=== PATIENT | male | born 1965 | race Caucasian/White ===

== ENCOUNTER 2019-05-17 17:06 | Emergency (ER) | payer OTHER ==
[~2019-05-17] VITALS: Ht 172.7 cm; Wt 81.6 kg
--- OUTSIDE RECORDS SUMMARY | 2019-05-17 17:09 | XMS REPORT | Summary of Care ---
Author Author Day Tesfaye M.A. Unknown Address [facility] Phone Unavailable Care Team Providers Care House Fellow Name Role Phone MARYJOCARLI LOZADA Unavailable Unavailable Jude Block MD Unavailable Unavailable JUDE BLOCK M.D. Unavailable Unavailable Senait Marie MD Unavailable Unavailable KINA STEPHENS MD Unavailable Unavailable Unavailable Unavailable Functional Status Name Dates Details Functional status health issues are not documented Status: Name Dates Details Cognitive status health issues are not documented Status: Problems Name Dates Details Fatigue (780.79, R53.83) Status: Active Loss of libido (799.81, R68.82) Status: Active Valvular heart disease (424.90, I38) Status: Active Colon cancer screening (V76.51, Z12.11) Status: Active Need for influenza vaccination (V04.81, Z23) Status: Active Benign essential hypertension (401.1, I10) Status: Active Nocturia (788.43, R35.1) Status: Active BMI 26.0-26.9,adult (V85.22, Z68.26) Status: Active Mid back pain (724.5, M54.9) Status: Active Muscle spasm (728.85, M62.838) Status: Active Medications Name Dates Details Metoprolol Succinate ER 50 MG Oral Tablet Extended Release 24 Hour * Start : 28-Dec-2017 Active 100 Tablet Bottle Losartan Potassium-HCTZ 100-25 MG Oral Tablet TAKE 1 TABLET DAILY. * Quantity: 30 Refills: 0 * Start : 28-Dec-2017 Active Omeprazole 40 MG Oral Capsule Delayed Release TAKE 1 CAPSULE BY MOUTH EVERY DAY * Quantity: 30 Refills: 0 * Start : 28-Dec-2017 Active Colon Cleanse Oral Capsule TAKE 1 CAPSULE DAILY * Refills: 0 Active Meloxicam 15 MG Oral Tablet 1 PO QD with food PRN pain * Quantity: 1 Refills: 0 MARYJO CARLI Fajardo * Start : 05-Mar-2019 Active 30 Tablet Bottle Baclofen 10 MG Oral Tablet 1/2 (half) to 1 PO QHS PRN back pain/spasm * Quantity: 20 Refills: 0 MARYOJ CARLI Fajardo * Start : 05-Mar-2019 Active Allergies and Adverse Reactions Name Dates Details No Known Drug Allergies (Allergy) Status: Active Past Medical History Name Dates Details History of high cholesterol (V12.29, Z86.39) Status: Resolved History of hypertension (V12.59, Z86.79) Status: Resolved Procedures Procedure Dates Details Procedures not documented Immunization Name Dates Details Fluzone Quadrivalent 0.5 ML Intramuscular Suspension Lot #: [id number] on: 19-Jul-2018 Family History Name Dates Details Family history of diabetes mellitus (V18.0, Z83.3) Status: Active Family history of high cholesterol (V18.19, Z83.42) Status: Active Name Dates Details Family history of hypertension (V17.49, Z82.49) Status: Active Family history of bicuspid aortic valve (V17.49, Z82.79) Status: Active Name Dates Details Family history of bicuspid aortic valve (V17.49, Z82.79) Status: Active Social History Name Dates Details - Status: Name Dates Details Never smoker Vital Signs Date Test Result Details [id number] BP Systolic 130 mm[Hg] Status: Comments: Location: LUE; Position: Sitting BP Diastolic 86 mm[Hg] Status: Comments: Location: E; Position: Sitting Height 69 in Status: Weight 184 lb Status: Body Mass Index Calculated 27.17 kg/m2 Status: Body Surface Area Calculated 1.99 m2 Status: Temperature 98 f Status: Comments: Method: Temporal Respiration Rate 16 /min Status: Heart Rate 59 /min Status: [id number] Physical Findings 3 Status: Comments: PHQ-9 Adult Depression Screening Results Date Description Value Details Results not documented Plan of Care Name Dates Details Planned Observations Planned Goals not documented Interventions Provided Medication Changes* Baclofen 10 MG Oral Tablet - Start * Meloxicam 15 MG Oral Tablet - Start Plan* Can take tylenol in addition to meloxicam PRN pain; no other NSAIDs with meloxicam * Baclofen may cause drowsiness. Do not drive or do any other safety-sensitive activities while taking the medication. * Activities as tolerated; advised to stop running for 1-2 weeks; otherwise, activities as tolerated Instructions Name Dates Details Instructions not documented Encounters Appointment; JUDE BLOCK M.D. Encounter Diagnosis: Problem not documented On: 28-Dec-2017 9:30 Appointment; SENAIT MARIE M.D. Encounter Diagnosis: Problem not documented On: 11-Jan-2018 13:30 Appointment; POLINA SERRANO NP Encounter Diagnosis: Problem not documented On: 19-Jul-2018 8:00 Appointment; CARLI SIBLEY P.A. Encounter Diagnosis: Problem not documented On: 05-Mar-2019 16:15
--- NOTE | 2019-05-17 18:14 | Diagnostic Imaging Report ---
Right humerus radiographs-2 views; right shoulder radiographs-2 views HISTORY: Status post fall. COMPARISON: None FINDINGS: No evidence of acute fracture, malalignment, or soft tissue abnormality. IMPRESSION: No acute radiographic abnormality. Signed by: Dr. Blaise Rey MD on 05/17/2019 6:11 PM
[2019-05-17] MEDS ORDERED: TETANUS/DIPHTHERIA TOX ADULT 0.5 ML SYR IM NR (18:28)
[2019-05-17] MEDS ORDERED: ACETAMINOPHEN 325 MG TAB PO NR (18:30)
[2019-05-17] MEDS ORDERED: IBUPROFEN 200 MG TAB PO NR (19:00)
== END 2019-05-17 19:20 | disposition home or self-care (01) ==
LOC: ER 17:06
DX: S43.51XA Sprain of right acromioclavicular joint, initial encounter (principal); M25.511 Pain in right shoulder; I10 Essential (primary) hypertension; W01.0XXA Fall on same level from slipping, tripping and stumbling without subsequent striking against object, initial encounter; Y92.524 Gas station as the place of occurrence of the external cause
CPT/HCPCS: 90471; 90714; 99284